=== PATIENT | female | born 1940 | race Caucasian/White ===

== ENCOUNTER → 2020-09-10 | Outpatient (CLI) | payer MEDICARE, OTHER | LOC: WCC 13:00 | PROC: 0JBN0ZZ Excision of Right Lower Leg Subcutaneous Tissue and Fascia, Open Approach (ICD-10-PCS; principal; 2020-09-10) | DX: T79.8XXD Other early complications of trauma, subsequent encounter (principal); E11.628 Type 2 diabetes mellitus with other skin complications; I11.0 Hypertensive heart disease with heart failure; I50.22 Chronic systolic (congestive) heart failure; Z88.1 Allergy status to other antibiotic agents; Z79.899 Other long term (current) drug therapy ==

== ENCOUNTER → 2020-09-24 | Outpatient (CLI) | payer MEDICARE, SELFPAY | LOC: WCC 13:20 | PROC: 0JBN0ZZ Excision of Right Lower Leg Subcutaneous Tissue and Fascia, Open Approach (ICD-10-PCS; principal; 2020-09-24) | DX: T79.8XXD Other early complications of trauma, subsequent encounter (principal); E11.628 Type 2 diabetes mellitus with other skin complications; I10 Essential (primary) hypertension; I50.22 Chronic systolic (congestive) heart failure; Z88.1 Allergy status to other antibiotic agents; Z79.4 Long term (current) use of insulin; Z79.899 Other long term (current) drug therapy ==

== ENCOUNTER → 2020-10-29 | Outpatient (CLI) | payer MEDICARE, SELFPAY | LOC: WCC 13:00 | PROC: 0JBN0ZZ Excision of Right Lower Leg Subcutaneous Tissue and Fascia, Open Approach (ICD-10-PCS; principal; 2020-10-29) | DX: S81.801A Unspecified open wound, right lower leg, initial encounter (principal); E11.52 Type 2 diabetes mellitus with diabetic peripheral angiopathy with gangrene; I96 Gangrene, not elsewhere classified; E11.622 Type 2 diabetes mellitus with other skin ulcer; L97.829 Non-pressure chronic ulcer of other part of left lower leg with unspecified severity; E11.628 Type 2 diabetes mellitus with other skin complications; I87.2 Venous insufficiency (chronic) (peripheral); F17.210 Nicotine dependence, cigarettes, uncomplicated; E11.36 Type 2 diabetes mellitus with diabetic cataract; H26.9 Unspecified cataract; J44.9 Chronic obstructive pulmonary disease, unspecified; I11.0 Hypertensive heart disease with heart failure; I50.22 Chronic systolic (congestive) heart failure; I25.2 Old myocardial infarction; M19.90 Unspecified osteoarthritis, unspecified site; Z88.8 Allergy status to other drugs, medicaments and biological substances; Z88.1 Allergy status to other antibiotic agents; Z92.3 Personal history of irradiation; Z92.21 Personal history of antineoplastic chemotherapy; Z79.01 Long term (current) use of anticoagulants; Z79.4 Long term (current) use of insulin; Z79.2 Long term (current) use of antibiotics; Z79.52 Long term (current) use of systemic steroids; Z79.899 Other long term (current) drug therapy; W22.8XXA Striking against or struck by other objects, initial encounter ==

== ENCOUNTER → 2020-11-05 | Outpatient (CLI) | payer MEDICARE, SELFPAY | LOC: WCC 13:08 | PROC: 0JBN0ZZ Excision of Right Lower Leg Subcutaneous Tissue and Fascia, Open Approach (ICD-10-PCS; principal; 2020-11-05) | DX: S81.801A Unspecified open wound, right lower leg, initial encounter (principal); E11.628 Type 2 diabetes mellitus with other skin complications; E11.36 Type 2 diabetes mellitus with diabetic cataract; H26.9 Unspecified cataract; I11.0 Hypertensive heart disease with heart failure; I50.22 Chronic systolic (congestive) heart failure; J44.9 Chronic obstructive pulmonary disease, unspecified; I25.2 Old myocardial infarction; M19.90 Unspecified osteoarthritis, unspecified site; Z88.1 Allergy status to other antibiotic agents; Z88.8 Allergy status to other drugs, medicaments and biological substances; Z79.2 Long term (current) use of antibiotics; Z79.4 Long term (current) use of insulin; Z79.02 Long term (current) use of antithrombotics/antiplatelets; Z79.52 Long term (current) use of systemic steroids; Z79.899 Other long term (current) drug therapy; Z92.21 Personal history of antineoplastic chemotherapy; Z92.3 Personal history of irradiation; X58.XXXA Exposure to other specified factors, initial encounter ==

== ENCOUNTER → 2020-11-12 | Outpatient (CLI) | payer MEDICARE | LOC: WCC 13:11 | DX: T79.8XXD Other early complications of trauma, subsequent encounter (principal); E11.628 Type 2 diabetes mellitus with other skin complications; I11.0 Hypertensive heart disease with heart failure; I50.22 Chronic systolic (congestive) heart failure; R60.1 Generalized edema ==